=== PATIENT | male | born 1990 | race Native Hawaiian/Other Pacific Islander ===

== ENCOUNTER 2018-10-06 16:06 | Emergency (ER) | payer OTHER ==
[~2018-10-06] VITALS: Ht 167.6 cm; Wt 99.8 kg
[2018-10-06] MEDS ORDERED: VENLAFAXINE150 M1 PO (16:10)
[2018-10-06] MEDS ORDERED: LAMISIL250 MG PO (16:11)
[2018-10-06] MEDS ORDERED: LAMISIL AT11 EX (16:11)
[2018-10-06] MEDS ORDERED: TRILEPTAL300 MG PO (16:12)
[2018-10-06 17:20] VITALS: BP 128/81; TEMP 99.5
== END 2018-10-06 17:20 | disposition home or self-care (01) ==
LOC: ED 16:06
DX: J01.80 Other acute sinusitis (principal)
CPT/HCPCS: 87502; 87651; 99283